=== PATIENT | male | born 2000 | race Caucasian/White ===

== ENCOUNTER 2024-04-01 16:15 | Emergency (ER) | payer OTHER ==
--- NOTE | 2024-04-01 17:43 | RAD REPORT ---
EXAM: CT brain without contrast HISTORY: Headache COMPARISON: None TECHNIQUE: Multiple contiguous axial images were obtained and a CT of the brain without contrast.. Sagittal and coronal reconstruction performed. Automated exposure control, adjustment of the mA and/or kV according to patient size, and/or iterative reconstruction. Unless otherwise specified, incidental f indings do not require dedicated imaging follow-up FINDINGS: An intracranial bleed is not seen Ventricles are normal caliber No extra-axial fluid collection noted No significant hypodensity within the brain No fluid within the visualized sinuses or mastoids noted. IMPRESSION: No acute intracranial abnormality noted. If the patient continues to have symptoms to suggest an acute intracranial abnormality then MRI of th e brain would be recommended.
--- NOTE | 2024-04-01 17:50 | ER ---
Nurse's Notes [facility] Name: Ulices Alcantara Age: 23 yrs Sex: Male : 2000 Arrival Date: 04/01/2024 Time: 16:15 Bed 8 Private MD: Diagnosis: Unspecified injury of head, initial encounter Presentation: 04/01 16:33 Chief complaint: Patient states: Was playing basketball this morning and fell and hit cm10 his head. Pt reports headache and back pain. No LOC. Coronavirus screen: Client denies travel out of the [place] in the last 14 days. Ebola Screen: Patient denies travel to an Ebola-affected area in the 21 days before illness onset. No symptoms or risks identified at this time. Initial Sepsis Screen: Does the patient meet any 2 criteria? No. Patient's initial sepsis screen is negative. Does the patient have a suspected source of infection? No. Patient's initial sepsis screen is negative. Risk Assessment: Do you want to hurt yourself or someone else? Patient reports no desire to harm self or others. Onset of symptoms was April 01, 2024. 16:33 Method Of Arrival: Law Enforcement: [place] [employer] cm10 16:33 Acuity: BIANCA 3 cm10 Triage Assessment: 16:35 Headache History: Denies prior headaches. General: Appears in no apparent distress. cm10 comfortable, Behavior is calm, cooperative. Pain: Complains of pain in head and back Pain does not radiate. Pain currently is 6 out of 10 on a pain scale. Pain began 4 hours ago. Also complains of no other associated symptoms. Neuro: No deficits noted. Level of Consciousness is awake, alert, obeys commands, Oriented to person, place, time, situation, Appropriate for age Reports headache. Respiratory: No deficits noted. Airway is patent Respiratory effort is even, unlabored, Respiratory pattern is regular, symmetrical. Derm: No deficits noted. No signs and/or symptoms reported regarding the dermatologic system. Skin is healthy with good turgor, Skin is pink, warm \T\ dry. Musculoskeletal: No deficits noted. Range of motion: intact in all extremities. Historical: - Allergies: 16:34 No Known Allergies; cm10 - Home Meds: 16:34 None [Active]; cm10 - PMHx: 16:34 None; cm10 - PSHx: 16:34 None; cm10 - Immunization history:: Adult Immunizations up to date. - Infectious Disease History:: Denies. - Social history:: Smoking status: Patient denies any tobacco usage or history of. Screenin:36 [facility] ED Fall Risk Assessment (Adult) History of falling in the last 3 months, cm10 including since admission Yes- single mechanical fall (1 pt) Confusion or Disorientation No (0 pts) Intoxicated or Sedated No (0 pts) Impaired Gait No (0 pts) Mobility Assist Device Used No (0 pt) Altered Elimination No (0 pt) Score/Fall Risk Level 0 - 2 = Low Risk Oriented to surroundings, Maintained a safe environment, Hourly rounding (assess needs \T\ fall precautionary measures) done. Abuse screen: Denies threats or abuse. Denies injuries from another. Nutritional screening: No deficits noted. Tuberculosis screening: No symptoms or risk factors identified. Assessment: 18:04 General: Appears in no apparent distress. Pain: Complains of pain in back and head. ko1 Neuro: Reports headache. Vital Signs: 16:33 BP 114 / 75; Pulse 78; Resp 16; Temp 98.5(TE); Pulse Ox 99% on R/A; Weight 60.78 kg; cm10 Height 5 ft. 10 in. ; Pain 6/10; 17:00 BP 123 / 70; Pulse 72; Resp 16; Pulse Ox 99% on R/A; cm10 18:04 BP 118 / 68; Pulse 68; Resp 16; Pulse Ox 99% ; ko1 16:33 Body Mass Index 19.23 (60.78 kg, 177.8 cm) cm10 16:33 Pain Scale: Adult cm10 [place] Coma Score: 18:48 Eye Response: spontaneous(4). Motor Response: obeys commands(6). Verbal Response: kb oriented(5). Total: 15. ED Course: 16:31 Patient arrived in ED. cm10 16:34 Triage completed. cm10 16:35 Kerri Crouch FNP-C is PHCP. kb 16:35 Edin De La Rosa MD is Attending Physician. kb 16:35 Arm band placed on right wrist. Patient placed in an exam room, on a stretcher. cm10 16:36 Patient has correct armband on for positive identification. Bed in low position. Call cm10 light in reach. Side rails up X 1. [facility] guards at bedside. Provided Education on: ER process and procedures. Pulse ox on. NIBP on. 17:02 CT Head Brain wo Cont In Process Unspecified. EDMS 17:55 My Gamino, RN is Primary Nurse. cm10 17:56 No provider procedures requiring assistance completed. Patient did not have IV access cm10 during this emergency room visit. Administered Medications: No medications were administered Medication: 16:36 VIS not applicable for this client. cm10 Outcome: 17:50 Discharge ordered by . gardenia 17:56 Discharged to [facility] cm10 17:56 Condition: good 17:56 Discharge instructions given to patient, Instructed on discharge instructions, follow up and referral plans. Demonstrated understanding of instructions, follow-up care, 18:05 Patient left the ED. ko1 Signatures: Dispatcher [employer] EDMS Kerri Crouch, UTILITY TELLER-Christine ALVAREZ-Sharlene Chapman RN RN ko1 My Gamino, RN RN cm10
--- NOTE | 2024-04-01 17:50 | EDPHYS ---
Physician Documentation [facility] Name: Ulices Alcantara Age: 23 yrs Sex: Male : 2000 Arrival Date: 04/01/2024 Time: 16:15 Bed 8 Private MD: ED Physician Edin De La Rosa HPI: 04/01 18:49 This 23 yrs old Male presents to ER via Law Enforcement with complaints of Headache. kb 18:49 Pt is a 23 year old male who presents for head pain after falling backwards while kb playing basketball this morning. Denies loc, nausea, vomiting, dizziness. Denies any other injury . Historical: - Allergies: 16:34 No Known Allergies; cm10 - Home Meds: 16:34 None [Active]; cm10 - PMHx: 16:34 None; cm10 - PSHx: 16:34 None; cm10 - Immunization history:: Adult Immunizations up to date. - Infectious Disease History:: Denies. - Social history:: Smoking status: Patient denies any tobacco usage or history of. ROS: 18:47 Constitutional: As per HPI kb Exam: 18:47 Constitutional: This is a well developed, well nourished patient who is awake, alert, kb and in no acute distress. Head/Face: Normocephalic, atraumatic. ENT: Moist Mucous membranes Cardiovascular: Regular rate Respiratory: Respirations even and unlabored. No increased work of breathing. Talking in full sentences Skin: Warm, dry with normal turgor. Normal color. MS/ Extremity: Pulses equal, no cyanosis. Neurovascular intact. Full, normal range of motion. Neuro: Awake and alert, GCS 15, oriented to person, place, time, and situation. Vital Signs: 16:33 BP 114 / 75; Pulse 78; Resp 16; Temp 98.5(TE); Pulse Ox 99% on R/A; Weight 60.78 kg; cm10 Height 5 ft. 10 in. ; Pain 6/10; 17:00 BP 123 / 70; Pulse 72; Resp 16; Pulse Ox 99% on R/A; cm10 18:04 BP 118 / 68; Pulse 68; Resp 16; Pulse Ox 99% ; ko1 16:33 Body Mass Index 19.23 (60.78 kg, 177.8 cm) cm10 16:33 Pain Scale: Adult cm10 [place] Coma Score: 18:48 Eye Response: spontaneous(4). Motor Response: obeys commands(6). Verbal Response: kb oriented(5). Total: 15. MDM: 16:35 Medical Screening Exam initiated kb 18:48 Differential diagnosis: ICH, contusion, fracture. Data reviewed: vital signs, nurses kb notes. Counseling: I had a detailed discussion with the patient and/or guardian regarding the historical points, exam findings, and any diagnostic results supporting the discharge/admit diagnosis, radiology results, the need for outpatient follow up, a family practitioner, to return to the emergency department if symptoms worsen or persist or if there are any questions or concerns that arise at home. 04/01 16:47 Order name: CT Head Brain wo Cont; Complete Time: 17:49 kb Administered Medications: No medications were administered Disposition Summary: 04/01/24 17:50 Discharge Ordered Notes: Condition: Stable kb Location: [employer](04/01/24 17:50) kb Diagnosis - Unspecified injury of head, initial encounter kb Followup: kb - With: Emergency Department - When: As needed - Reason: Worsening of condition Followup: kb - With: Private Physician - When: 2 - 3 days - Reason: Recheck today's complaints, Continuance of care, Re-evaluation by your physician Discharge Instructions: - Discharge Summary Sheet kb - Head Injury, Adult, [id number] kb Forms: - Medication Reconciliation Form kb - Antibiotic Education kb - Prescription Opioid Use kb - Patient Portal Instructions kb - Leadership Thank You Letter kb Signatures: Dispatcher [employer] Kerri Mccray, BAG MACHINE HELPER-C BAG MACHINE HELPER-My Walker, RN RN cm10 Corrections: (The following items were deleted from the chart) 17:50 17:50 Home kb kb 18:50 18:48 Counseling: I had a detailed discussion with the patient and/or guardian kb regarding the historical points, exam findings, and any diagnostic results supporting the discharge/admit diagnosis, radiology results, the need for outpatient follow up, a family practitioner, to return to the emergency department if symptoms worsen or persist or if there are any questions or concerns that arise at home, kb 18:50 18:47 Constitutional: This is a well developed, well nourished patient who is awake, kb alert, and in no acute distress. Head/Face: Normocephalic, atraumatic. ENT: Moist Mucous membranes Cardiovascular: Regular rate Respiratory: Respirations even and unlabored. No increased work of breathing. Talking in full sentences MS/ Extremity: Pulses equal, no cyanosis. Neurovascular intact. Full, normal range of motion. Neuro: Awake and alert, GCS 15, oriented to person, place, time, and situation. 18:50 18:47 Skin: Wound recheck: Staple laceration closure: the wound is healing well, the kb edges are well approximated, no evidence of dehiscence, no erythema, no swelling, mild drainage, 18:50 18:47 Suture/Staple removal: Removed 11 cortez, from left parietal area, site appears kb well healed, Patient tolerated well, kb
[2024-04-02 00:27] VITALS: TEMP 98.5; O2SAT 99
[2024-04-02 00:30] VITALS: BP 118/68
== END 2024-04-01 18:05 ==
LOC: ER 16:15
DX: S09.90XA Unspecified injury of head, initial encounter (principal); R51.9 Headache, unspecified
CPT/HCPCS: 70450; 99283

== ENCOUNTER 2024-07-06 19:05 | Emergency (ER) | payer OTHER ==
[2024-07-06 19:42] LABS: Absolute Lymphocytes (CBC) 1.4 K/uL (0.7-4.9); Absolute Monocytes 0.8 K/uL (0.1-1.3); Absolute Neutrophil 6.3 K/uL (1.8-8.0); Basophils % 0.3 % (0-1.3); Eosinophils % 0.4 % (0-4.4); Hematocrit 40.5 % (39.6-49.0); Hemoglobin 13.7 g/dL (13.6-17.9); Lymphocytes % 16.3 % (15.3-44.8); MCH 28.7 pg (27.0-35.0); MCHC 33.8 g/dL (32.0-36.0); MPV 10.2 fL (7.6-11.3); Monocytes % 9.4 % (3.3-12.3); Neutrophils % 73.6 % (41.7-73.7); Platelets 186 thou/uL (152-406); RBC Red Blood Cell Count 4.76 M/uL (4.33-5.43); Red Cell Distribution Width 13.4 % (12.1-15.2)
[2024-07-06] MEDS ORDERED: ONDANSETRON 4 MG/2 ML VIAL ONE (19:55)
--- NOTE | 2024-07-06 19:56 | RAD REPORT ---
EXAMINATION: CT ABDOMEN AND PELVIS WITH CONTRAST CLINICAL INDICATION: Abdominal pain TECHNIQUE: CT abdomen and pelvis was performed, after the administration of 100 cc Isovue-300.. Sagit david and coronal reconstructions were obtained. One or more of the following dose reduction techniques were used: Automated exposure control, adjustment of the mA and kV according to patient si ze, and iterative reconstruction. Unless otherwise specified, incidental findings do not require dedicated imaging follow-up. [id number]. Oral contrast was not given which limits evaluation of bowel and appendix. COMPARISON: .None FINDINGS: Liver, pancreas, adrenals and kidneys appear unremarkable 2 low to intermediate density splenic masses. Largest 15 mm. Hounsfield unit 31. No evidence of diverticulitis. Normal appendix. Fluid within nondilated small bowel Contracted gallbladder : IMPRESSION: Fluid within nondilated small bowel may indicate an enteritis. Splenic lesions. They are nonspecific. They do not represent simple cysts. They probably are benign. Follow-up splenic ultrasound in 3 months recommended for reevaluation Contracted gallbladder
[2024-07-06 19:58] LABS: AST/SGOT 22 U/L (15-37); Albumin 3.8 g/dL (3.4-5.0); Alkaline Phosphatase 93 U/L (45-117); Anion Gap 7.1 mEq/L (5.0-15.0); BUN Blood Urea Nitrogen 13 mg/dL (7-18); Bicarbonate 27 mEq/L (21-32); Bilirubin Total 0.6 mg/dL (0.2-1.0); Globulin 3.8 g/dL (2.3-3.5); Glomerular Filtration Rate 118 ml/min (=/>90); Glucose Level 103 mg/dL (74-106); Lipase 37 U/L (13-75); Potassium 4.1 mEq/L (3.5-5.1); Protein, Total 7.6 g/dL (6.4-8.2); Sodium Level 137 mEq/L (136-145)
[2024-07-06 20:02] LABS: ALT/SGPT < 14 U/L (16-61)
[2024-07-06 20:28] LABS: Specific Gravity 1.021 (1.005-1.030); Sqamous Epithelial None Seen /HPF (None Seen); Urine Bacteria None Seen /HPF (<20); Urine Bilirubin NEGATIVE (Negative); Urine Blood Negative (Negative); Urine Clarity Clear (Clear); Urine Color Colorless (Yellow); Urine Culture Reflex Order NOT NEEDED; Urine Glucose NEGATIVE (Negative); Urine Ketones NEGATIVE (Negative); Urine Microscopic Reflex YN ORDER UMIC; Urine Nitrite NEGATIVE (Negative); Urine Protein NEGATIVE (Negative); Urine RBC <5 /HPF (None Seen); Urine Urobilinogen Normal (Normal); Urine WBC <5 /HPF (<5)
--- NOTE | 2024-07-06 20:28 | ER ---
Nurse's Notes [facility] Name: Ulices Alcantara Age: 23 yrs Sex: Male : 2000 Arrival Date: 07/06/2024 Time: 19:05 Bed 4 Private MD: Diagnosis: Noninfective gastroenteritis and colitis, unspecified Presentation: 07/06 19:15 Chief complaint: EMS states: nausea, vomiting, and diarrhea x7 episodes. Coronavirus cp4 screen: Client denies travel out of the [place] in the last 14 days. At this time, the client does not indicate any symptoms associated with coronavirus-19. Ebola Screen: Patient negative for fever greater than or equal to 101.5 degrees Fahrenheit, and additional compatible Ebola Virus Disease symptoms Patient denies exposure to infectious person. Patient denies travel to an Ebola-affected area in the 21 days before illness onset. No symptoms or risks identified at this time. Initial Sepsis Screen: Does the patient meet any 2 criteria? No. Patient's initial sepsis screen is negative. Does the patient have a suspected source of infection? No. Patient's initial sepsis screen is negative. Risk Assessment: Do you want to hurt yourself or someone else? Patient reports no desire to harm self or others. Onset of symptoms was July 06, 2024. 19:15 Method Of Arrival: EMS: [facility] cp4 19:15 Acuity: BIANCA 3 cp4 Triage Assessment: 19:18 General: Appears in no apparent distress. uncomfortable, Behavior is calm, cooperative, cp4 appropriate for age. Pain: Complains of pain in right lower quadrant Pain does not radiate. Pain currently is 5 out of 10 on a pain scale. EENT: No signs and/or symptoms were reported regarding the EENT system. Neuro: Level of Consciousness is awake, alert, Oriented to person, place, time, situation. Cardiovascular: Patient's skin is warm and dry. Respiratory: Airway is patent Respiratory effort is even, unlabored. GI: Abdomen is round non-distended, Bowel sounds present X 4 quads. Abd is soft and non tender X 4 quads. Reports diarrhea, nausea, vomiting. : No signs and/or symptoms were reported regarding the genitourinary system. Derm: No signs and/or symptoms reported regarding the dermatologic system. Musculoskeletal: No signs and/or symptoms reported regarding the musculoskeletal system. Historical: - Allergies: 19:18 No Known Allergies; cp4 - Immunization history:: Adult Immunizations up to date. - Infectious Disease History:: Denies. - Social history:: Smoking status: Patient denies any tobacco usage or history of. Screenin:23 [facility] ED Fall Risk Assessment (Adult) History of falling in the last 3 months, cp4 including since admission No falls in past 3 months (0 pts) Confusion or Disorientation No (0 pts) Intoxicated or Sedated No (0 pts) Impaired Gait No (0 pts) Mobility Assist Device Used No (0 pt) Altered Elimination No (0 pt) Score/Fall Risk Level 0 - 2 = Low Risk Oriented to surroundings, Maintained a safe environment, Assessed \T\ reinforced patient's understanding of fall precautions, Hourly rounding (assess needs \T\ fall precautionary measures) done. Abuse screen: Denies threats or abuse. Nutritional screening: No deficits noted. Tuberculosis screening: No symptoms or risk factors identified. Assessment: 19:23 Reassessment: No changes from previously documented assessment. cp4 20:16 Reassessment: Patient appears in no apparent distress at this time. No changes from vc1 previously documented assessment. Patient and/or family updated on plan of care and expected duration. Pain level reassessed. Vital Signs: 19:15 BP 111 / 73; Pulse 79; Resp 18; Temp 98.1; Pulse Ox 100% ; Weight 58.97 kg; Height 5 cp4 ft. 10 in. ; Pain 5/10; 20:16 BP 111 / 71; Pulse 65; Resp 18; Pulse Ox 100% ; vc1 19:15 Body Mass Index 18.65 (58.97 kg, 177.8 cm) cp4 19:15 Pain Scale: Adult cp4 ED Course: 19:06 Patient arrived in ED. kb 19:06 [facility] kb 19:06 Edin De La Rosa MD is Attending Physician. kb 19:09 Radiology exam delayed due to lab results not completed at this time. (BUN/Creatinine) jc4 IV insertion attempt and/or patient not having appropriate IV at this time. 19:15 Nena Crump is Primary Nurse. cp4 19:18 Triage completed. cp4 19:18 Arm band placed on right wrist. Patient placed in an exam room, on a stretcher. cp4 19:23 Bed in low position. Call light in reach. Side rails up X 1. Security at bedside. cp4 19:23 No provider procedures requiring assistance completed. Maintain EMS IV. Dressing cp4 intact. Good blood return noted. Site clean \T\ dry. Gauge \T\ site: 20 LFA. Flushed with 10 mL NS. 19:46 CT Abd/Pelvis - IV Contrast Only In Process Unspecified. EDMS 21:08 Provided Education on: discharge, zofran. vc1 21:08 IV discontinued, intact, bleeding controlled, No redness/swelling at site. Pressure vc1 dressing applied. Administered Medications: 19:24 Drug: NS 0.9% IV 1000 ml IV at 1 bolus Per protocol; to be given as a bolus over 60 cp4 minutes Route: IV; Rate: 1 bolus; Site: left forearm; 21:34 Follow up: IV Status: Completed infusion cp4 19:56 Drug: Ondansetron IVP 4 mg IVP once; over 2 minutes Route: IVP; Site: left forearm; cp4 21:34 Follow up: Response: No adverse reaction cp4 Medication: 19:23 VIS not applicable for this client. cp4 Outcome: 20:27 Discharge ordered by MD. varner 21:08 Discharged to [employer] vc1 21:08 Condition: stable 21:08 Discharge instructions given to patient, Instructed on discharge instructions, follow up and referral plans. medication usage, Demonstrated understanding of instructions, follow-up care, medications, 21:08 Patient left the ED. vc1 Signatures: Dispatcher [employer] EDWY Kerri Crouch, ARCHITECTURAL PROJECT MANAGER-C ARCHITECTURAL PROJECT MANAGER-Lucrecia Owusu RN RN 1 Nena Crump cp4 Jerome Helm 4
--- NOTE | 2024-07-06 20:28 | EDPHYS ---
Physician Documentation [facility] Name: Ulices Alcantara Age: 23 yrs Sex: Male : 2000 Arrival Date: 07/06/2024 Time: 19:05 Bed 4 Private MD: ED Physician Edin De La Rosa HPI: 07/06 19:07 This 23 yrs old Male presents to ER via Unassigned with complaints of n/v/d. kb 19:07 Pt is a 23 year old male who presents for nausea, vomiting and diarrhea that started at kb 0800 this morning. Denies fever. Pt was given NS 250ml bolus and phenergan 25mg at snf unit and IV fluids by EMS prior to arrival. Historical: - Allergies: 19:18 No Known Allergies; cp4 - Immunization history:: Adult Immunizations up to date. - Infectious Disease History:: Denies. - Social history:: Smoking status: Patient denies any tobacco usage or history of. ROS: 19:07 Constitutional: As per HPI kb Exam: 19:07 Constitutional: This is a well developed, well nourished patient who is awake, alert, kb and in no acute distress. Head/Face: Normocephalic, atraumatic. ENT: Moist Mucous membranes Cardiovascular: Regular rate Respiratory: Respirations even and unlabored. No increased work of breathing. Talking in full sentences Skin: Warm, dry with normal turgor. Normal color. MS/ Extremity: Pulses equal, no cyanosis. Neurovascular intact. Full, normal range of motion. Neuro: Awake and alert, GCS 15, oriented to person, place, time, and situation. 19:07 Abdomen/GI: Inspection: abdomen appears normal, Bowel sounds: normal, Palpation: soft, in all quadrants, mild abdominal tenderness, in the right lower quadrant, Vital Signs: 19:15 BP 111 / 73; Pulse 79; Resp 18; Temp 98.1; Pulse Ox 100% ; Weight 58.97 kg; Height 5 cp4 ft. 10 in. ; Pain 5/10; 20:16 BP 111 / 71; Pulse 65; Resp 18; Pulse Ox 100% ; vc1 19:15 Body Mass Index 18.65 (58.97 kg, 177.8 cm) cp4 19:15 Pain Scale: Adult cp4 MDM: 19:07 Medical Screening Exam initiated kb 19:09 Differential diagnosis: dehydration, abnormal electrolytes. Data reviewed: vital signs, kb nurses notes. Historians other than the Patient: EMS: [facility]. 20:26 Counseling: I had a detailed discussion with the patient and/or guardian regarding the kb historical points, exam findings, and any diagnostic results supporting the discharge/admit diagnosis, lab results, radiology results, the need for outpatient follow up, a family practitioner, to return to the emergency department if symptoms worsen or persist or if there are any questions or concerns that arise at home. ED course: Tolerating po intake. Symptoms improved. 07/06 19:07 Order name: CBC with Diff; Complete Time: 19:46 kb 07/06 19: Order name: CMP; Complete Time: 20:07 kb 07/06 19: Order name: Lipase; Complete Time: 20:07 kb 07/06 19:07 Order name: Urinalysis w/ reflexes; Complete Time: 20:30 kb 07/06 19:07 Order name: CT Abd/Pelvis - IV Contrast Only; Complete Time: 20:00 kb 07/06 19:07 Order name: IV Saline Lock; Complete Time: 19:36 kb 07/06 19:07 Order name: Labs collected and sent; Complete Time: 19:36 kb 07/06 20:08 Order name: PO challenge; Complete Time: 20:14 kb Administered Medications: 19:24 Drug: NS 0.9% IV 1000 ml IV at 1 bolus Per protocol; to be given as a bolus over 60 cp4 minutes Route: IV; Rate: 1 bolus; Site: left forearm; 21:34 Follow up: IV Status: Completed infusion cp4 19:56 Drug: Ondansetron IVP 4 mg IVP once; over 2 minutes Route: IVP; Site: left forearm; cp4 21:34 Follow up: Response: No adverse reaction cp4 Disposition Summary: 07/06/24 20:27 Discharge Ordered Notes: Location: Home kb Condition: Stable kb Diagnosis - Noninfective gastroenteritis and colitis, unspecified kb Followup: kb - With: Emergency Department - When: As needed - Reason: Worsening of condition Followup: kb - With: Private Physician - When: 2 - 3 days - Reason: Recheck today's complaints, Continuance of care, Re-evaluation by your physician Discharge Instructions: - Discharge Summary Sheet kb - Viral Gastroenteritis, Adult, [id number] kb Forms: - Medication Reconciliation Form kb - Antibiotic Education kb - Prescription Opioid Use kb - Patient Portal Instructions kb - Leadership Thank You Letter kb Prescriptions: - Zofran 4 mg Oral tablet - take 1 tablet ORAL route every 6 hours As needed; 12 tablet; Refills: 0, kb Product Selection Permitted Signatures: Dispatcher [employer] EDKerri Lewis, Nena Butler cp4
[2024-07-06 21:27] VITALS: TEMP 98.1; O2SAT 100
[2024-07-06 21:28] VITALS: BP 111/71
== END 2024-07-06 21:08 | disposition home or self-care (01) ==
LOC: ER 19:05
DX: K52.9 Noninfective gastroenteritis and colitis, unspecified (principal)
CPT/HCPCS: 96361; 85025; 81001; 36415; 83690; 80053; 74177; 96374; 99285; Q9967; J2405